=== PATIENT | female | born 1975 ===

== ENCOUNTER 2020-09-05 11:00 | Outpatient (RCR) | payer OTHER ==
[2020-09-04 12:38] VITALS: BP 103/69; PULSE 63; TEMP 98.5
[~2020-09-05] VITALS: Wt 76.4 kg
[~2020-09-05 11:00] MED LIST: LEVOXYL0.125 MG PO
[2020-09-05 11:40] VITALS: BP 106/72; PULSE 64; TEMP 98.4
== END 2020-09-05 12:30 | disposition home or self-care (01) ==
LOC: EUO 11:00
PROVIDERS: Internal Medicine Endocrinology, Diabetes & Metabolism
DX: Z79.899 Other long term (current) drug therapy (principal)
CPT/HCPCS: J3240